=== PATIENT | male | born 1990 | race Caucasian/White ===

== ENCOUNTER → 2017-01-11 | Outpatient (CLI) | payer OTHER | LOC: MW.MNT 09:46 | PROVIDERS: ATTEND Family Medicine | DX: E66.09 Other obesity due to excess calories (principal); Z68.42 Body mass index [BMI] 45.0-49.9, adult | CPT/HCPCS: 97802 ==

== ENCOUNTER 2018-01-25 16:52 | Emergency (ER) | payer OTHER ==
[2018-01-25] MEDS ORDERED: Diphtheria,Pertussis(Acell),Tetanus Vaccine 0.5 ML Syringe IM ONE (17:12)
--- NOTE | 2018-01-25 17:13 | EDM.PDOC ---
ED HPI GENERAL MEDICAL PROBLEM - General Chief Complaint: Laceration Stated Complaint: LACERATION LT THUMB Time Seen by Provider: 01/25/18 17:08 Source of Information: Reports: Patient, Family History Limitations: Reports: No Limitations - History of Present Illness INITIAL COMMENTS - FREE TEXT/NARRATIVE: HISTORY AND PHYSICAL: []27-year-old male presenting with a laceration to his left thumb History of Present Illness: []he works at [employer] was slicing and caught his thumb with the edge of the knife Review of Systems: As per history of present illness and below otherwise all systems reviewed and negative. Past medical history: As per history of present illness and as reviewed below otherwise noncontributory. Surgical history: As per history of present illness and as reviewed below otherwise noncontributory. Social history: No reported history of drug or alcohol abuse. Family history: As per history of present illness and as reviewed below otherwise noncontributory. Physical exam: Alert and oriented male answering questions appropriately. HEENT: Atraumatic, normocehpalic, pupils reactive, negative for conjunctival pallor or scleral icterus, mucous membranes moist, throat clear, neck supple, nontender, trachea midline. Lungs: Clear to auscultation, breath sounds equal bilaterally, chest non tender. Heart: S1S2, regular, negative for clicks, rubs, or JVD. Abdomen: Soft, nondistended, nontender. Negative for masses or hepatossplenmegaly. Negative for costovertebral tenderness. Pelvis: Stable nontender. Genitourinary: Deferred. Rectal: Deferred Extremities: traumatic, left thumb just caught the edge with a knife. negative for cords or calf pain. Neurovascular unremarkable. Neuro: Awake, alert, oriented. Cranial nerves II through XII unremarkable. Cerebellum unremarkable. Motor and sensory unremarkable throughout. Exam nonfocal. Diagnostics: [] Therapeutics: []Bulky dressing Impression: []Minor laceration Plan: []Return as needed Definitive disposition and diagnosis as appropriate pending reevaluation and review of above. Onset: Today, Sudden Duration: Minutes: left thumb Pain Score (Numeric/FACES): 3 - Related Data Allergies Allergy/AdvReac Type Severity Reaction Status Date / Time No Known Allergies Allergy Verified 01/25/18 17:02 Home Meds: Home Meds Albuterol [Proair HFA] 1 - 2 puff INH Q4HR PRN 10/25/14 [History] Desvenlafaxine Succinate [Pristiq ER] 100 mg PO DAILY 01/25/18 [History] Past Medical History Cardiovascular History: Reports: Hypertension Respiratory History: Reports: Asthma Psychiatric History: Reports: Depression - Past Surgical History HEENT Surgical History: Reports: Adenoidectomy, Tonsillectomy Social & Family History - Family History Family Medical History: Noncontributory - Tobacco Use Smoking Status *Q: Never Smoker Second Hand Smoke Exposure: No - Caffeine Use Caffeine Use: Reports: Soda - Alcohol Use Days Per Week of Alcohol Use: 0 - Recreational Drug Use Recreational Drug Use: No ED ROS GENERAL - Review of Systems Review Of Systems: ROS reveals no pertinent complaints other than HPI. ED EXAM, SKIN/RASH Exam: See Below (See dictation) Course - Vital Signs Last Recorded V/S: Last Vital Signs Temp 35.6 C 01/25/18 17:00 Pulse 94 01/25/18 17:00 Resp 18 01/25/18 17:00 BP 137/85 01/25/18 17:00 Pulse Ox 96 01/25/18 17:00 Departure - Departure Time of Disposition: 17:11 Disposition: Home, Self-Care 01 Condition: Good Clinical Impression: Laceration - Discharge Information Instructions: Stitches, Violetta, or Adhesive Wound Closure, [id number] Referrals: PCP,None [Primary Care Provider] - Additional Instructions: The following information is given to patients seen in the emergency department who are being discharged to home. This information is to outline your options for follow-up care. We provide all patients seen in our emergency department with a follow-up referral. The need for follow-up, as well as the timing and circumstances, are variable depending upon the specifics of your emergency department visit. If you don't have a primary care physician on staff, we will provide you with a referral. We always advise you to contact your personal physician following an emergency department visit to inform them of the circumstance of the visit and for follow-up with them and/or the need for any referrals to a consulting specialist. The emergency department will also refer you to a specialist when appropriate. This referral assures that you have the opportunity for followup care with a specialist. All of these measure are taken in an effort to provide you with optimal care, which includes your followup. Under all circumstances we always encourage you to contact your private physician who remains a resource for coordinating your care. When calling for followup care, please make the office aware that this follow-up is from your recent emergency room visit. If for any reason you are refused follow-up, please contact the [facility] emergency department at and asked to speak to the emergency department charge nurse. Your given a tetanus shot while in the ER You have a laceration to your thumb that was treated with Vaseline gauze and bulky dressing This should be changed in 2 days Any signs of infection or concerns return to the emergency room for reevaluation as discussed
== END 2018-01-25 17:55 | disposition home or self-care (01) ==
LOC: MW.ED 16:52
DX: S61.012A Laceration without foreign body of left thumb without damage to nail, initial encounter (principal); I10 Essential (primary) hypertension; J45.909 Unspecified asthma, uncomplicated; Z23 Encounter for immunization; W26.0XXA Contact with knife, initial encounter
CPT/HCPCS: 90471; 90715; 99282-25

== ENCOUNTER 2018-02-05 14:00 | Emergency (ER) | payer OTHER ==
--- NOTE | 2018-02-05 14:01 | EDM.PDOC ---
ED HPI GENERAL MEDICAL PROBLEM - General Chief Complaint: Skin Complaint Stated Complaint: PT WANTS TO GET FINGER CHECK FOR INFECTION Time Seen by Provider: 02/05/18 14:01 Source of Information: Reports: Patient - History of Present Illness INITIAL COMMENTS - FREE TEXT/NARRATIVE: HISTORY AND PHYSICAL: History of present illness: [ Patient presents with history of a laceration to the left thumb, he essentially sliced off lateral corner of left thumb similar to an avulsion, he was seen tetanus status was updated and bandaging applied it is healing well he is 10-11 days out from this occurrence, there is a small amount of redness surrounding the area and no actual tenderness and wound is healing by secondary intent nicely no fever nausea vomiting chills sweats no pain ] Review of systems: As per history of present illness and below otherwise all systems reviewed and negative. Past medical history: As per history of present illness and as reviewed below otherwise noncontributory. Surgical history: As per history of present illness and as reviewed below otherwise noncontributory. Social history: No reported history of drug or alcohol abuse. Family history: As per history of present illness and as reviewed below otherwise noncontributory. Physical exam: HEENT: Atraumatic, normocephalic, pupils reactive, negative for conjunctival pallor or scleral icterus, mucous membranes moist, throat clear, neck supple, nontender, trachea midline. Lungs: Clear to auscultation, breath sounds equal bilaterally, chest nontender. Heart: S1S2, regular, negative for clicks, rubs, or JVD. Abdomen: Soft, nondistended, nontender. Negative for masses or hepatosplenomegaly. Negative for costovertebral tenderness. Pelvis: Stable nontender. Genitourinary: Deferred. Rectal: Deferred. Extremities: Atraumatic, negative for cords or calf pain. Neurovascular unremarkable. Neuro: Awake, alert, oriented. Cranial nerves II through XII unremarkable. Cerebellum unremarkable. Motor and sensory unremarkable throughout. Exam nonfocal. Skin as per history of present illness Diagnostics: [Clinical ] Therapeutics: [No status updated previously Keflex 500 by mouth twice a day prophylactically #20 no refill ] Impression: [Laceration healing by secondary intent Small area of cellulitis surrounds] Definitive disposition and diagnosis as appropriate pending reevaluation and review of above. - Related Data Allergies Allergy/AdvReac Type Severity Reaction Status Date / Time No Known Allergies Allergy Verified 02/05/18 14:21 Home Meds: Home Meds Albuterol [Proair HFA] 1 - 2 puff INH Q4HR PRN 08/01/14 [History] Desvenlafaxine Succinate [Pristiq ER] 100 mg PO DAILY 01/25/18 [History] Past Medical History Cardiovascular History: Reports: Hypertension Respiratory History: Reports: Asthma Psychiatric History: Reports: Depression - Past Surgical History HEENT Surgical History: Reports: Adenoidectomy, Tonsillectomy Social & Family History - Family History Family Medical History: Noncontributory - Tobacco Use Smoking Status *Q: Never Smoker Second Hand Smoke Exposure: No - Caffeine Use Caffeine Use: Reports: Soda - Alcohol Use Days Per Week of Alcohol Use: 0 - Recreational Drug Use Recreational Drug Use: No ED ROS GENERAL - Review of Systems Review Of Systems: ROS reveals no pertinent complaints other than HPI. ED EXAM, SKIN/RASH Exam: See Below Course - Vital Signs Last Recorded V/S: Last Vital Signs Temp 96.7 F 02/05/18 14:22 Pulse 101 H 02/05/18 14:22 Resp 18 02/05/18 14:22 BP Pulse Ox 99 02/05/18 14:22 Departure - Departure Time of Disposition: 14:59 Disposition: Home, Self-Care 01 Condition: Good Clinical Impression: Laceration - Discharge Information Forms: ED Department Discharge Additional Instructions: Standard wound care as instructed Continue to cover wound Medication as prescribed Follow-up with primary care as needed The following information is given to patients seen in the emergency department who are being discharged to home. This information is to outline your options for follow-up care. We provide all patients seen in our emergency department with a follow-up referral. The need for follow-up, as well as the timing and circumstances, are variable depending upon the specifics of your emergency department visit. If you don't have a primary care physician on staff, we will provide you with a referral. We always advise you to contact your personal physician following an emergency department visit to inform them of the circumstance of the visit and for follow-up with them and/or the need for any referrals to a consulting specialist. The emergency department will also refer you to a specialist when appropriate. This referral assures that you have the opportunity for follow-up care with a specialist. All of these measure are taken in an effort to provide you with optimal care, which includes your follow-up. Under all circumstances we always encourage you to contact your private physician who remains a resource for coordinating your care. When calling for follow-up care, please make the office aware that this follow-up is from your recent emergency room visit. If for any reason you are refused follow-up, please contact the [facility] emergency department at and asked to speak to the emergency department charge nurse.
== END 2018-02-05 15:05 | disposition home or self-care (01) ==
LOC: MW.ED 14:00
DX: S61.012D Laceration without foreign body of left thumb without damage to nail, subsequent encounter (principal); W26.8XXD Contact with other sharp object(s), not elsewhere classified, subsequent encounter; I10 Essential (primary) hypertension; F32.9 Major depressive disorder, single episode, unspecified; J45.909 Unspecified asthma, uncomplicated
CPT/HCPCS: 99282; 99283

== ENCOUNTER 2018-03-31 17:54 | Emergency (ER) | payer OTHER ==
[2018-03-31] MEDS ORDERED: Lidocaine 1% 20 ML MDV INJECT ONE (18:03)
--- NOTE | 2018-03-31 18:28 | EDM.PDOC ---
ED HPI GENERAL MEDICAL PROBLEM - General Chief Complaint: Laceration Stated Complaint: left hand cut from a slicer Time Seen by Provider: 03/31/18 18:06 Source of Information: Reports: Patient History Limitations: Reports: No Limitations - History of Present Illness INITIAL COMMENTS - FREE TEXT/NARRATIVE: HISTORY AND PHYSICAL: 27-year-old male presents with a laceration to the fifth finger on his left hand History of Present Illness: []Patient was using a slicer at work "[employer]" and his finger got in the way Review of Systems: As per history of present illness and below otherwise all systems reviewed and negative. Past medical history: As per history of present illness and as reviewed below otherwise noncontributory. Surgical history: As per history of present illness and as reviewed below otherwise noncontributory. Social history: No reported history of drug or alcohol abuse. Family history: As per history of present illness and as reviewed below otherwise noncontributory. Physical exam: Alert and oriented male answering questions appropriately in full sentences without any shortness of breath his last tetanus vaccine is less than 5 years HEENT: Atraumatic, normocehpalic, pupils reactive, negative for conjunctival pallor or scleral icterus, mucous membranes moist, throat clear, neck supple, nontender, trachea midline. Lungs: Clear to auscultation, breath sounds equal bilaterally, chest non tender. Heart: S1S2, regular, negative for clicks, rubs, or JVD. Abdomen: Soft, nondistended, nontender. Negative for masses or hepatossplenmegaly. Negative for costovertebral tenderness. Pelvis: Stable nontender. Genitourinary: Deferred. Rectal: Deferred Extremities: Laterally across the EIP there is a laceration not extending into the joint, area does look clean full range of motion is present, negative for cords or calf pain. Neurovascular unremarkable. Neuro: Awake, alert, oriented. Cranial nerves II through XII unremarkable. Cerebellum unremarkable. Motor and sensory unremarkable throughout. Exam nonfocal. Percent lidocaine was utilized in 5 mL to provide a digital block for his left fifth finger. Tourniquet was applied at the base of his finger to control bleeding was able to see to the base of the wound. Sutures 6 were placed and wound was closed bleeding had been controlled. X-ray of this finger Diagnostics: [] Therapeutics: []Sutures placed Impression: []Laceration with repair Plan: []Discharge Sutures out in 7 days Any signs of infection return immediately for reevaluation Keflex 500 3 times a day for 5 days Return to the emergency room as directed and discussed Definitive disposition and diagnosis as appropriate pending reevaluation and review of above. Onset: Today, Sudden - Related Data Allergies Allergy/AdvReac Type Severity Reaction Status Date / Time No Known Allergies Allergy Verified 03/31/18 18:04 Home Meds: Home Meds Albuterol [Proair HFA] 1 - 2 puff INH Q4HR PRN 08/01/14 [History] Desvenlafaxine Succinate [Pristiq ER] 100 mg PO DAILY 01/25/18 [History] Past Medical History Cardiovascular History: Reports: Hypertension Respiratory History: Reports: Asthma Psychiatric History: Reports: Depression - Past Surgical History HEENT Surgical History: Reports: Adenoidectomy, Tonsillectomy Social & Family History - Family History Family Medical History: Noncontributory - Tobacco Use Smoking Status *Q: Never Smoker Second Hand Smoke Exposure: No - Caffeine Use Caffeine Use: Reports: Soda - Recreational Drug Use Recreational Drug Use: No ED ROS GENERAL - Review of Systems Review Of Systems: ROS reveals no pertinent complaints other than HPI. ED EXAM, SKIN/RASH Exam: See Below (See dictation) ED SKIN PROCEDURES - Laceration/Wound Repair Left Medial Finger Lac/Wound length In cm: 3 Appearance: Subcutaneous Distal NVT: Neuro & Vascular Intact, No Tendon Injury Anesthetic Type: Digital Local Anesthesia - Lidocaine (Xylocaine): 1% Plain Local Anesthetic Volume: 5cc Skin Prep: Chlorhexidine (Hibiciens), Saline Exploration/Debridement/Repair: Wound Explored, In a Bloodless Field, Explored to Base Suture Size: 4-0 # of Sutures: 6 Suture Type: Nylon, Interrupted, Simple Course - Vital Signs Last Recorded V/S: Last Vital Signs Temp 36.3 C 03/31/18 18:05 Pulse 95 03/31/18 18:05 Resp 18 03/31/18 18:05 BP 135/94 H 03/31/18 18:05 Pulse Ox 95 03/31/18 18:05 - Orders/Labs/Meds Orders: Active Orders 24 hr Category Date Time Status Fingers Fifth Digit Lt F4 [CR] Stat Exams 03/31/18 18:36 Taken Meds: Medications Discontinued Medications Generic Name Dose Route Start Last Admin Trade Name Forest PRN Reason Stop Dose Admin Bacitracin 1 dose 03/31/18 18:36 Bacitracin Oint 1 Gm TOP 03/31/18 18:37 ONETIME ONE Bacitracin Confirm 03/31/18 18:38 Bacitracin Oint 1 Gm Administered 03/31/18 18:39 Dose 1 dose .ROUTE .STK-MED ONE Lidocaine HCl Confirm 03/31/18 18:09 03/31/18 18:13 Xylocaine-Mpf 1% Administered 03/31/18 18:10 Not Given Dose 10 mls @ as directed .ROUTE .STK-MED ONE Lidocaine HCl 50 ml 03/31/18 18:03 03/31/18 18:12 Xylocaine 1% INJECT 03/31/18 18:04 Not Given ONETIME ONE Lidocaine HCl 10 ml 03/31/18 18:06 03/31/18 18:13 Xylocaine-Mpf 1% INJECT 03/31/18 18:07 5 ml ONETIME ONE Administration Departure - Departure Time of Disposition: 19:20 Disposition: Home, Self-Care 01 Condition: Good Clinical Impression: Laceration - Discharge Information Instructions: Laceration Care, Adult, [id number], Stitches, Jackson, or Adhesive Wound Closure, [id number] Referrals: Wilder Yip MD [Primary Care Provider] - Malgorzata Solomon MD [Physician] - Forms: ED Department Discharge Additional Instructions: The following information is given to patients seen in the emergency department who are being discharged to home. This information is to outline your options for follow-up care. We provide all patients seen in our emergency department with a follow-up referral. The need for follow-up, as well as the timing and circumstances, are variable depending upon the specifics of your emergency department visit. If you don't have a primary care physician on staff, we will provide you with a referral. We always advise you to contact your personal physician following an emergency department visit to inform them of the circumstance of the visit and for follow-up with them and/or the need for any referrals to a consulting specialist. The emergency department will also refer you to a specialist when appropriate. This referral assures that you have the opportunity for followup care with a specialist. All of these measure are taken in an effort to provide you with optimal care, which includes your followup. Under all circumstances we always encourage you to contact your private physician who remains a resource for coordinating your care. When calling for followup care, please make the office aware that this follow-up is from your recent emergency room visit. If for any reason you are refused follow-up, please contact the [facility] emergency department at and asked to speak to the emergency department charge nurse. Follow up with Dr. Sherrill Solomon as she is a hand specialist [facility] Professional Building [address] [place] [address], [address] [place] [address] - My Orders Last 24 Hours: My Active Orders 03/31/18 18:36 Fingers Fifth Digit Lt F4 [CR] Stat - Assessment/Plan Last 24 Hours: My Active Orders 03/31/18 18:36 Fingers Fifth Digit Lt F4 [CR] Stat
[2018-03-31] MEDS ORDERED: Bacitracin Oint 1 GM U/D Packet TOP ONE (18:36)
[2018-03-31] MEDS ORDERED: Bacitracin Oint 1 GM U/D Packet ONE (18:38)
--- NOTE | 2018-04-01 16:33 | CR ---
EXAM DATE: 03/31/18 PATIENT'S AGE: 27 Patient: RESHMA ORTEGA Facility: [place], [place] Site . Site : 1990 Study: XRay Extremity Left 5th digit [id number]/24/2018 7:02:18 PM Ordering Physician: Doctor Pina Final Report: INDICATION: Laceration to 5th digit. TECHNIQUE: 3 views left 5th digit. FINDINGS: Moderate soft tissue deformity of the dorsal aspect of left 5th digit consistent with known laceration. Very faint opaque density along the proximal dorsal aspect of the left 5th digit could indicate very faint opaque foreign body but is not diagnostic. The left 5th digit is held in moderate flexion deformity at the PIP joint and is hyperextended at the DIP joint on the 2 lateral views. No fracture. Remainder negative. Dictated by Narendra Newell MD @ Mar 31 2018 7:34PM (Electronic Signature) Report Signed by Proxy. JAMMIE
== END 2018-03-31 19:35 | disposition home or self-care (01) ==
LOC: MW.ED 17:54
DX: S61.217A Laceration without foreign body of left little finger without damage to nail, initial encounter (principal); I10 Essential (primary) hypertension; J45.909 Unspecified asthma, uncomplicated; Z79.899 Other long term (current) drug therapy; W26.8XXA Contact with other sharp object(s), not elsewhere classified, initial encounter
CPT/HCPCS: 73140-26-F4; 73140-F4; 99283

== ENCOUNTER 2018-04-13 23:03 | Emergency (ER) | payer OTHER | END 2018-04-13 23:29 | disposition left against medical advice (07) | LOC: MW.ED 23:03 | DX: Z53.21 Procedure and treatment not carried out due to patient leaving prior to being seen by health care provider (principal) ==

== ENCOUNTER 2025-03-05 18:55 | Emergency (ER) | payer OTHER ==
[2025-03-05] MEDS: Ibuprofen 800 MG Tab PO ONE (23:11)
[2025-03-05] MEDS: Methocarbamol 750 MG Tab PO STA (23:11)
== END 2025-03-05 23:22 | disposition home or self-care (01) ==
LOC: MW.ED 18:55
DX: M54.40 Lumbago with sciatica, unspecified side (principal); I10 Essential (primary) hypertension; J45.909 Unspecified asthma, uncomplicated; Z75.3 Unavailability and inaccessibility of health-care facilities; Z79.899 Other long term (current) drug therapy
CPT/HCPCS: 99283; A9270

== ENCOUNTER 2025-05-02 14:56 | Emergency (ER) | payer OTHER | END 2025-05-02 16:54 | disposition home or self-care (01) | LOC: MW.ED 14:56 | DX: L05.01 Pilonidal cyst with abscess (principal); I10 Essential (primary) hypertension; J45.909 Unspecified asthma, uncomplicated; Z75.3 Unavailability and inaccessibility of health-care facilities; Z79.899 Other long term (current) drug therapy; Z79.51 Long term (current) use of inhaled steroids | CPT/HCPCS: 10080; 99283; J2003; 10061 ==